=== PATIENT | male | born 1960 | race Caucasian/White ===

== ENCOUNTER → 2017-02-19 | Outpatient (CLI) | payer OTHER ==
[2015-05-18 12:20] VITALS: BP 109/73
[~2017-02-19] MED LIST: CIPRO 250MG TA250 MG PO; FLOMAX0.4 MG PO; FLONASE ALLERG9.9 ML NS; LISINOPRIL10 MG PO; NORCO 325 MG-51 TAB PO; PATADAY 2.5 ML2.5 ML OP; ZESTRIL 5MG5 MG PO
== END ==
LOC: LAB 12:36
DX: R05 Cough (principal)

== ENCOUNTER → 2017-05-05 | Outpatient (CLI) | payer OTHER ==
[2015-05-18 12:20] VITALS: BP 109/73
== END ==
LOC: LAB 08:51
DX: I10 Essential (primary) hypertension (principal); Z83.3 Family history of diabetes mellitus; R73.9 Hyperglycemia, unspecified

== ENCOUNTER → 2017-05-12 | Outpatient (CLI) | payer OTHER ==
[2015-05-18 12:20] VITALS: BP 109/73
== END ==
LOC: LAB 07:54
DX: R73.9 Hyperglycemia, unspecified (principal); I10 Essential (primary) hypertension; E78.00 Pure hypercholesterolemia, unspecified; Z83.3 Family history of diabetes mellitus

== ENCOUNTER → 2017-10-08 | Outpatient (CLI) | payer OTHER ==
[2015-05-18 12:20] VITALS: BP 109/73
== END ==
LOC: LAB 08:07
DX: I10 Essential (primary) hypertension (principal); E78.00 Pure hypercholesterolemia, unspecified

== ENCOUNTER → 2019-09-21 | Outpatient (CLI) | payer OTHER ==
[2015-05-18 12:20] VITALS: BP 109/73
== END ==
LOC: LAB 08:00
DX: Z02.83 Encounter for blood-alcohol and blood-drug test (principal)

== ENCOUNTER 2020-01-15 14:44 | Emergency (ER) | payer OTHER ==
[~2020-01-15] VITALS: Ht 175.3 cm; Wt 84.1 kg
[2020-01-15] MEDS ORDERED: CROMOLYN SODIUM10 ML OU (15:01)
[2020-01-15 15:27] LABS: EOS # 0.2 (0.04-0.40); EOS % 3.1 % (0.0-4.0); HEMOGLOBIN 14.1 g/dL (13.5-18.0); LYMPH# 1.4 (1.50-4.00); MEAN CELL VOLUME 94 fl (78-100); MEAN CORPUSCULAR HEMOGLOBIN 32 pg (27-31); MEAN CORPUSCULAR HGB CONC 34 g/dL (33-37); MONO # 0.4 (0.20-0.80); NEU # 3.4 (1.40-6.50); PLATELET COUNT 130 K/mm3 (130-400); RED BLOOD COUNT 4.38 M/mm3 (4.20-5.60); RED CELL DISTRIBUTION WIDTH 12.8 % (11.5-14.5); WHITE BLOOD COUNT 5.4 K/mm3 (4.8-10.8)
[2020-01-15 15:36] LABS: ALBUMIN 4.1 g/dL (3.5-5.0); POTASSIUM 3.9 mmol/L (3.5-5.1); SODIUM 141 mmol/L (136-145)
[2020-01-15 15:39] LABS: GLUCOSE 118 mg/dL (75-110); TOTAL PROTEIN 7.3 g/dL (6.4-8.3)
[2020-01-15 15:40] LABS: CARBON DIOXIDE 22 mmol/L (22-29)
[2020-01-15 15:41] LABS: TOTAL BILIRUBIN 0.5 mg/dL (0.2-1.2)
[2020-01-15 15:44] LABS: AST-SGOT 22 U/L (5-34)
[2020-01-15 15:45] LABS: ALT/SGPT 22 U/L (0-55)
[2020-01-15 15:53] LABS: TROPONIN-I < 0.03 ng/mL (<0.030)
[2020-01-15 19:46] VITALS: BP 149/100
== END 2020-01-15 19:50 | disposition home or self-care (01) ==
LOC: ED 14:44
PROVIDERS: Family Medicine
DX: R07.89 Other chest pain (principal); I10 Essential (primary) hypertension; Z87.442 Personal history of urinary calculi; Z79.82 Long term (current) use of aspirin; Z90.89 Acquired absence of other organs

== ENCOUNTER 2020-01-22 18:16 | Emergency (ER) | payer OTHER ==
[~2020-01-22] VITALS: Ht 175.3 cm; Wt 87.9 kg
[~2020-01-22 18:16] MED LIST changes: +CROMOLYN SODIUM10 ML OU
[2020-01-22 20:32] VITALS: BP 159/100
== END 2020-01-22 20:32 | disposition home or self-care (01) ==
LOC: ED 18:16
DX: S06.0X9A Concussion with loss of consciousness of unspecified duration, initial encounter (principal); I10 Essential (primary) hypertension; Z23 Encounter for immunization; W19.XXXA Unspecified fall, initial encounter
CPT/HCPCS: 90715

== ENCOUNTER → 2020-01-24 | Outpatient (CLI) | payer OTHER ==
[2020-01-22 20:32] VITALS: BP 159/100
== END ==
LOC: RAD 16:45 → VAS 16:45
DX: I10 Essential (primary) hypertension (principal); E78.00 Pure hypercholesterolemia, unspecified; R07.9 Chest pain, unspecified; R73.9 Hyperglycemia, unspecified

== ENCOUNTER → 2020-02-10 | Outpatient (CLI) | payer OTHER ==
[2020-01-22 20:32] VITALS: BP 159/100
== END ==
LOC: CARDREHAB 08:05 → CARDLAB 09:47
DX: I10 Essential (primary) hypertension (principal); R07.9 Chest pain, unspecified

== ENCOUNTER → 2020-03-06 | Outpatient (CLI) | payer OTHER | LOC: RAD 08:23 | DX: S99.922A Unspecified injury of left foot, initial encounter (principal) ==

== ENCOUNTER → 2020-04-13 | Outpatient (CLI) | payer OTHER ==
[2020-04-13 09:31] LABS: POTASSIUM 4.5 mmol/L (3.5-5.1)
[2020-04-13 09:32] LABS: CALCIUM 9.2 mg/dL (8.3-10.5)
== END ==
LOC: LAB 09:08
PROVIDERS: Family Medicine
DX: I10 Essential (primary) hypertension (principal); E78.00 Pure hypercholesterolemia, unspecified; R73.09 Other abnormal glucose

== ENCOUNTER → 2020-04-17 | Outpatient (CLI) | payer OTHER | LOC: LAB 08:49 | DX: I10 Essential (primary) hypertension (principal); E78.2 Mixed hyperlipidemia; R73.9 Hyperglycemia, unspecified ==

== ENCOUNTER → 2020-07-19 | Outpatient (CLI) | payer OTHER ==
[2020-07-19 09:04] LABS: POTASSIUM 4.3 mmol/L (3.5-5.1)
[2020-07-19 09:05] LABS: CALCIUM 8.9 mg/dL (8.3-10.5)
== END ==
LOC: LAB 08:32
PROVIDERS: Family Medicine
DX: I10 Essential (primary) hypertension (principal); R73.9 Hyperglycemia, unspecified; M25.472 Effusion, left ankle

== ENCOUNTER → 2020-09-26 | Outpatient (CLI) | payer OTHER ==
[2020-09-26 08:02] LABS: CALCIUM 8.9 mg/dL (8.3-10.5)
== END ==
LOC: LAB 07:30
PROVIDERS: Family Medicine
DX: M10.9 Gout, unspecified (principal)

== ENCOUNTER 2020-10-05 04:51 | Emergency (ER) | payer OTHER ==
[2020-10-05] MEDS ORDERED: NORVASC 5MG5 MG/TAB PO (05:18)
[2020-10-05 05:46] LABS: EOS # 0.1 (0.04-0.40); EOS % 1.5 % (0.0-4.0); HEMATOCRIT 42.4 % (42.0-52.0); HEMOGLOBIN 14.2 g/dL (13.5-18.0); LYMPH# 2.1 (1.50-4.00); MEAN CELL VOLUME 95 fl (78-100); MEAN CORPUSCULAR HEMOGLOBIN 32 pg (27-31); MEAN CORPUSCULAR HGB CONC 34 g/dL (33-37); MEAN PLATELET VOLUME 10.6 fl (7.4-10.4); MONO # 0.6 (0.20-0.80); NEU # 4.7 (1.40-6.50); PLATELET COUNT 150 K/mm3 (130-400); RED BLOOD COUNT 4.47 M/mm3 (4.20-5.60); RED CELL DISTRIBUTION WIDTH 12.4 % (11.5-14.5); WHITE BLOOD COUNT 7.5 K/mm3 (4.8-10.8)
[2020-10-05 05:48] LABS: ALBUMIN 4.3 g/dL (3.5-5.0)
[2020-10-05 05:49] LABS: CALCIUM 9.3 mg/dL (8.3-10.5)
[2020-10-05 05:50] LABS: TOTAL PROTEIN 7.9 g/dL (6.4-8.3)
[2020-10-05 05:52] LABS: TOTAL BILIRUBIN 0.4 mg/dL (0.2-1.2)
[2020-10-05 06:03] LABS: URINE COLOR LT YELLOW
[2020-10-05 06:04] LABS: URINE APPEARANCE CLOUDY; URINE BILIRUBIN NEGATIVE (NEGATIVE); URINE BLOOD 50 ery/uL (NEGATIVE); URINE GLUCOSE NEGATIVE (NEGATIVE); URINE KETONE 1+ (NEGATIVE); URINE NITRATE NEGATIVE (NEGATIVE); URINE PROTEIN(semi-quant) TRACE mg/dL (NEGATIVE); URINE UROBILINOGEN NORMAL (NORMAL)
[2020-10-05 06:05] LABS: URINE LEUKOCYTE ESTERASE TRACE (NEGATIVE)
[2020-10-05 06:09] LABS: POTASSIUM 4.1 mmol/L (3.5-5.1)
[2020-10-05] MEDS ORDERED: NORCO 325 MG-51 TA1 PO (09:33)
[2020-10-05 09:51] VITALS: BP 135/81
== END 2020-10-05 09:40 | disposition home or self-care (01) ==
LOC: ED 04:51
PROVIDERS: Family Medicine
DX: N20.0 Calculus of kidney (principal); I10 Essential (primary) hypertension; Z87.442 Personal history of urinary calculi
CPT/HCPCS: J1885; J2405; J7030

== ENCOUNTER → 2020-11-01 | Outpatient (CLI) | payer OTHER ==
[2020-10-05 09:51] VITALS: BP 135/81
[~2020-11-01] MED LIST changes: +NORCO 325 MG-51 TA1 PO; +NORVASC 5MG5 MG/TAB PO
== END ==
LOC: RAD 15:23
DX: M25.562 Pain in left knee (principal)

== ENCOUNTER 2020-11-06 14:00 | Outpatient (RCR) | payer OTHER | END 2021-02-04 | disposition still patient (30) | LOC: PT | DX: M25.562 Pain in left knee (principal) ==

== ENCOUNTER → 2021-06-27 | Outpatient (CLI) | payer BC ==
[2021-06-27 09:31] LABS: ALBUMIN 4.4 g/dL (3.5-5.0); POTASSIUM 4.5 mmol/L (3.5-5.1)
[2021-06-27 09:34] LABS: TOTAL PROTEIN 8.3 g/dL (6.4-8.3)
[2021-06-27 09:36] LABS: TOTAL BILIRUBIN 0.6 mg/dL (0.2-1.2)
== END ==
LOC: LAB 08:51
PROVIDERS: Family Medicine
DX: Z00.00 Encounter for general adult medical examination without abnormal findings (principal); Z13.1 Encounter for screening for diabetes mellitus; Z13.220 Encounter for screening for lipoid disorders; M10.9 Gout, unspecified

== ENCOUNTER → 2021-07-30 | Day surgery (SDC) | payer BC | END | disposition home or self-care (01) | LOC: MSO 08:07 | DX: Z12.11 Encounter for screening for malignant neoplasm of colon (principal); K62.89 Other specified diseases of anus and rectum; I10 Essential (primary) hypertension; M10.9 Gout, unspecified; Z79.899 Other long term (current) drug therapy | CPT/HCPCS: 00811; J2704; J7120 ==

== ENCOUNTER → 2021-10-27 | Outpatient (CLI) | payer BC ==
[2021-10-27 12:53] LABS: BASO # 0.04 K/mm3 (0.02-0.10); EOS # 0.08 K/mm3 (0.04-0.40); EOS % 1.9 % (0.0-4.0); HEMOGLOBIN 15.2 g/dL (13.5-18.0); LYMPH# 1.29 K/mm3 (1.50-4.00); MEAN CELL VOLUME 94 fl (78-100); MEAN CORPUSCULAR HEMOGLOBIN 32 pg (27-31); MEAN CORPUSCULAR HGB CONC 34 g/dL (33-37); MEAN PLATELET VOLUME 9.7 fl (7.4-10.4); MONO # 0.61 K/mm3 (0.20-0.80); NEU # 2.26 K/mm3 (1.40-6.50); PLATELET COUNT 112 K/mm3 (130-400); RED BLOOD COUNT 4.81 M/mm3 (4.20-5.60); RED CELL DISTRIBUTION WIDTH 12.5 % (11.5-14.5); WHITE BLOOD COUNT 4.3 K/mm3 (4.8-10.8)
== END ==
LOC: LAB 12:08
PROVIDERS: Nurse Practitioner Family
DX: U07.1 COVID-19 (principal)

== ENCOUNTER 2022-02-13 10:23 | Emergency (ER) | payer BC ==
[~2022-02-13] VITALS: Ht 175.3 cm; Wt 82.3 kg
[2022-02-13] MEDS ORDERED: BRILINTA90 MG PO (10:45)
[2022-02-13] MEDS ORDERED: ZESTRIL5 M1 PO (10:45)
[2022-02-13] MEDS ORDERED: LIPITOR 80MG80 MG PO (10:45)
[2022-02-13] MEDS ORDERED: ISOSORBIDE30 MG PO (10:46)
[2022-02-13] MEDS ORDERED: ASPIRIN 81M81 MG/TA2 PO (10:46)
[2022-02-13] MEDS ORDERED: NITROSTAT0.4 M1 SL (10:47)
[2022-02-13 11:30] LABS: BASO # 0.04 K/mm3 (0.02-0.10); EOS % 1.7 % (0.0-4.0); HEMOGLOBIN 13.1 g/dL (13.5-18.0); LYMPH# 1.43 K/mm3 (1.50-4.00); MEAN CELL VOLUME 94 fl (78-100); MEAN CORPUSCULAR HEMOGLOBIN 32 pg (27-31); MEAN CORPUSCULAR HGB CONC 34 g/dL (33-37); MEAN PLATELET VOLUME 10.2 fl (7.4-10.4); MONO # 0.58 K/mm3 (0.20-0.80); PLATELET COUNT 157 K/mm3 (130-400); RED BLOOD COUNT 4.13 M/mm3 (4.20-5.60); RED CELL DISTRIBUTION WIDTH 12.8 % (11.5-14.5); WHITE BLOOD COUNT 5.8 K/mm3 (4.8-10.8)
[2022-02-13 11:47] LABS: ALBUMIN 4.4 g/dL (3.5-5.0); POTASSIUM 4.3 mmol/L (3.5-5.1)
[2022-02-13 11:49] LABS: CALCIUM 9.4 mg/dL (8.3-10.5)
[2022-02-13 11:50] LABS: TOTAL PROTEIN 7.7 g/dL (6.4-8.3)
[2022-02-13 11:52] LABS: TOTAL BILIRUBIN 0.8 mg/dL (0.2-1.2)
[2022-02-13 12:25] LABS: D-DIMER 0.52 mg/L FEU (0.15-0.50)
[2022-02-13 14:41] VITALS: BP 144/92
== END 2022-02-13 14:30 | disposition home or self-care (01) ==
LOC: ED 10:23
PROVIDERS: Physician Assistant
DX: R07.89 Other chest pain (principal); X50.0XXA Overexertion from strenuous movement or load, initial encounter
CPT/HCPCS: J7030; Q9967

== ENCOUNTER 2022-03-08 15:13 | Outpatient (RCR) | payer BC ==
[~2022-03-08 15:13] MED LIST changes: +ASPIRIN 81M81 MG/TA2 PO; +BRILINTA90 MG PO; +ISOSORBIDE30 MG PO; +LIPITOR 80MG80 MG PO; +NITROSTAT0.4 M1 SL; +ZESTRIL5 M1 PO
== END 2022-03-24 | disposition home or self-care (01) ==
LOC: CARDREHAB
DX: Z48.812 Encounter for surgical aftercare following surgery on the circulatory system (principal); Z95.5 Presence of coronary angioplasty implant and graft; I25.10 Atherosclerotic heart disease of native coronary artery without angina pectoris; I25.2 Old myocardial infarction

== ENCOUNTER 2022-03-25 15:00 | Outpatient (RCR) | payer BC | END 2022-04-24 | disposition home or self-care (01) | LOC: CARDREHAB | DX: Z48.812 Encounter for surgical aftercare following surgery on the circulatory system (principal); Z95.5 Presence of coronary angioplasty implant and graft; I25.10 Atherosclerotic heart disease of native coronary artery without angina pectoris ==

== ENCOUNTER → 2022-07-30 | Outpatient (CLI) | payer BC ==
[2022-07-30 10:38] LABS: BASO # 0.02 K/mm3 (0.02-0.10); EOS # 0.14 K/mm3 (0.04-0.40); EOS % 2.1 % (0.0-4.0); HEMATOCRIT 43.4 % (42.0-52.0); HEMOGLOBIN 14.3 g/dL (13.5-18.0); LYMPH# 1.01 K/mm3 (1.50-4.00); MEAN CELL VOLUME 98 fl (78-100); MEAN CORPUSCULAR HEMOGLOBIN 32 pg (27-31); MEAN CORPUSCULAR HGB CONC 33 g/dL (33-37); MEAN PLATELET VOLUME 9.9 fl (7.4-10.4); MONO # 0.49 K/mm3 (0.20-0.80); NEU # 5.08 K/mm3 (1.40-6.50); PLATELET COUNT 141 K/mm3 (130-400); RED BLOOD COUNT 4.44 M/mm3 (4.20-5.60); RED CELL DISTRIBUTION WIDTH 12.7 % (11.5-14.5); WHITE BLOOD COUNT 6.8 K/mm3 (4.8-10.8)
[2022-07-30 10:39] LABS: POTASSIUM 4.1 mmol/L (3.5-5.1)
[2022-07-30 10:41] LABS: CALCIUM 9.2 mg/dL (8.3-10.5)
== END ==
LOC: LAB 10:14
PROVIDERS: Nurse Practitioner Family
DX: M10.9 Gout, unspecified (principal)

== ENCOUNTER → 2023-04-30 | Outpatient (CLI) | payer BC | LOC: LAB 09:08 | DX: R05.9 Cough, unspecified (principal) ==

== ENCOUNTER → 2023-07-28 | Outpatient (CLI) | payer BC ==
[2023-07-28 09:52] LABS: CALCIUM 8.9 mg/dL (8.3-10.5)
== END ==
LOC: LAB 09:21
PROVIDERS: Family Medicine
DX: Z00.00 Encounter for general adult medical examination without abnormal findings (principal); Z53.20 Procedure and treatment not carried out because of patient's decision for unspecified reasons; I10 Essential (primary) hypertension; I25.10 Atherosclerotic heart disease of native coronary artery without angina pectoris; E78.2 Mixed hyperlipidemia; K25.7 Chronic gastric ulcer without hemorrhage or perforation

== ENCOUNTER → 2023-08-20 | Outpatient (CLI) | payer BC | LOC: RAD 13:33 | DX: M79.672 Pain in left foot (principal) ==

== ENCOUNTER → 2023-08-29 | Outpatient (CLI) | payer BC ==
[2023-08-29 10:24] LABS: CALCIUM 8.9 mg/dL (8.3-10.5)
== END ==
LOC: LAB 09:26
PROVIDERS: Family Medicine
DX: I10 Essential (primary) hypertension (principal); M10.9 Gout, unspecified

== ENCOUNTER → 2023-09-22 | Outpatient (CLI) | payer BC ==
[~2023-09-22] MED LIST changes: +AMLODIPINE BESYL5 MG PO; +ATORVASTATIN CA80 MG PO; +CYCLOBENZAPRINE10 M1 PO; +PROTONIX TR40 M1; +ZYLOPRIM 100MG100 MG PO
== END ==
LOC: RAD 14:00
DX: R51.9 Headache, unspecified (principal)
CPT/HCPCS: Q9967

== ENCOUNTER → 2023-09-25 | Outpatient (CLI) | payer BC | LOC: RAD 17:14 | DX: M50.321 Other cervical disc degeneration at C4-C5 level (principal); M50.322 Other cervical disc degeneration at C5-C6 level; M50.323 Other cervical disc degeneration at C6-C7 level; M48.02 Spinal stenosis, cervical region; G44.229 Chronic tension-type headache, not intractable ==

== ENCOUNTER → 2024-02-09 | Outpatient (CLI) | payer BC ==
[2024-02-09 09:31] LABS: CALCIUM 9.2 mg/dL (8.3-10.5)
== END ==
LOC: LAB 08:59
PROVIDERS: Family Medicine
DX: I10 Essential (primary) hypertension (principal)

== ENCOUNTER → 2024-08-09 | Outpatient (CLI) | payer BC | LOC: LAB 09:44 | PROVIDERS: Family Medicine | DX: Z12.5 Encounter for screening for malignant neoplasm of prostate (principal); Z13.1 Encounter for screening for diabetes mellitus; I10 Essential (primary) hypertension ==

== ENCOUNTER → 2024-11-12 | Outpatient (CLI) | payer BC ==
[2024-11-12 09:04] LABS: CALCIUM 9.7 mg/dL (8.3-10.5)
== END ==
LOC: LAB 08:46
PROVIDERS: Family Medicine
DX: I25.10 Atherosclerotic heart disease of native coronary artery without angina pectoris (principal); E78.2 Mixed hyperlipidemia